=== PATIENT | female | born 1980 | race Caucasian/White ===

== ENCOUNTER 2018-07-27 13:46 | Emergency (ER) | payer MEDICAID, SELFPAY ==
[2018-07-27 13:47] VITALS: BP 126/85; PULSE 95; RESP 12; TEMP 36.6; O2SAT 100; BMI 26.0
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
[2018-07-27] MEDS: HYDROcodone Bitartrate/Apap 5/325 Tablet PO (14:09)
[2018-07-27] MEDS: Ibuprofen 600 MG Tablet PO (14:11)
--- NOTE | 2018-07-27 15:06 | ED.DEP ---
ED Disposition - Plan for ED Patient: Disposition: Home or Assisted Living Chief Complaint: Upper Extremity Injury Instructions: ED Fx Upper Ext Prescriptions: Hydrocodone/Acetaminophen [[place] 5-325 Tablet] 1 - 2 each PO 4X/DAY PRN PRN 5 Days #20 tablet PRN Reason: Pain Referrals: Alok Tillman DO [STAFF PHYSICIAN] - 1 Week
--- NOTE | 2018-07-27 15:09 | DCINST.ED_ITS ---
ED Disposition - Plan for ED Patient: Disposition: Home or Assisted Living Chief Complaint: Upper Extremity Injury Instructions: ED Fx Upper Ext Prescriptions: Hydrocodone/Acetaminophen [[place] 5-325 Tablet] 1 - 2 each PO 4X/DAY PRN PRN 5 Days #20 tablet PRN Reason: Pain Referrals: Alok Tillman DO [STAFF PHYSICIAN] - 1 Week
[2018-07-27 15:18] VITALS: RESP 16
== END 2018-07-27 15:19 | disposition home or self-care (01) ==
PROVIDERS: Emergency Provider Emergency Medicine; Family Provider Internal Medicine; PCP Internal Medicine
DX: S52.224A Nondisplaced transverse fracture of shaft of right ulna, initial encounter for closed fracture (principal); W18.30XA Fall on same level, unspecified, initial encounter; Y93.9 Activity, unspecified; Y92.009 Unspecified place in unspecified non-institutional (private) residence as the place of occurrence of the external cause; Y99.9 Unspecified external cause status; K21.9 Gastro-esophageal reflux disease without esophagitis; F31.9 Bipolar disorder, unspecified; Z72.0 Tobacco use
CPT/HCPCS: 29125; 73090; 99283

== ENCOUNTER 2018-08-09 06:33 | Emergency (ER) | payer MEDICAID, SELFPAY ==
[2018-08-09 06:34] VITALS: BP 133/89; PULSE 92; RESP 18; TEMP 36.9; O2SAT 99; BMI 26.2
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
[2018-08-09] MEDS: HYDROcodone Bitartrate/Apap 5/325 Tablet PO (07:51)
== END 2018-08-09 08:02 | disposition home or self-care (01) ==
PROVIDERS: Emergency Provider Emergency Medicine; Family Provider Internal Medicine; PCP Internal Medicine
DX: S52.601G Unspecified fracture of lower end of right ulna, subsequent encounter for closed fracture with delayed healing (principal); W10.9XXD Fall (on) (from) unspecified stairs and steps, subsequent encounter; Y04.2XXD Assault by strike against or bumped into by another person, subsequent encounter; K21.9 Gastro-esophageal reflux disease without esophagitis; Z72.0 Tobacco use
CPT/HCPCS: 29125; 71111; 73090; 99283

== ENCOUNTER 2018-09-21 17:30 | Emergency (ER) | payer SELFPAY ==
[2018-09-21 17:31] VITALS: BP 141/94; PULSE 89; RESP 15; TEMP 36.7; O2SAT 96; BMI 26.7
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
== END 2018-09-21 18:23 | disposition home or self-care (01) ==
LOC: ED 18:21
PROVIDERS: Emergency Provider Emergency Medicine; Family Provider Internal Medicine; PCP Internal Medicine
DX: R07.81 Pleurodynia (principal); M79.631 Pain in right forearm; G89.29 Other chronic pain; R07.9 Chest pain, unspecified; Z72.0 Tobacco use; J34.89 Other specified disorders of nose and nasal sinuses
CPT/HCPCS: 99282

== ENCOUNTER 2019-01-19 22:59 | Observation (INO) | payer MEDICAID, SELFPAY ==
[2019-01-19 23:00] VITALS: BP 149/88; PULSE 86; RESP 16; TEMP 36.4; O2SAT 98; BMI 28.1
[2019-01-20 00:01] LABS: Absolute Lymphocyte Count 2.59 X10^3/ul (0.83-4.51); Absolute Neutrophil Count 5.8 X10^3/uL (2.0-7.7); Basophil# 0.02 X10^3/uL; Basophil% 0.2 % (0-1); Eosinophil# 0.27 X10^3/uL; Eosinophils% 2.9 % (0-5); Hematocrit 37.5 % (37-47); Hemoglobin 12.2 g/dl (12.0-15.0); Lymphocyte # 2.59 X10^3/ul (4.0); Lymphocyte % 27.5 % (19-41); Mean Corp Hgb Conc 32.5 g/gl (32-36); Mean Corpuscular Hgb 29.5 pg (27.0-32.0); Mean Corpuscular Volume 90.8 fL (81-99); Mean Platelet Vol. 10.3 fl (6.2-12.0); Monocyte# 0.76 X10^3/uL; Monocyte% 8.1 % (0-10); Neutrophil # 5.77 X10^3/uL (2.7-7.7); Neutrophil % 61.1 % (47-70); POSITIVE COUNT NO; POSITIVE DIFFERENTIAL NO; POSITIVE MORPHOLOGY NO; Platelet Count 281 K/mm3 (150-450); RBC Distribution Width CV 14.2 % (11.6-14.6); RBC Distribution Width SD 47.6 fl (35.1-43.9); Red Blood Count 4.13 M/mm3 (4.2-5.4); White Blood Count 9.4 K/mm3 (4.4-11.0)
[2019-01-20] MEDS: Ondansetron 4 MG/2 ML Vial IV ×2 (00:01→04:34)
[2019-01-20] MEDS: 0.9% Normal Saline 1,000 ML 1000 ML IV (00:01)
[2019-01-20] MEDS: Morphine 4 MG/ML Syringe IV ×2 (00:01→00:53)
[2019-01-20 00:07] LABS: Mucous, Urine 0 SEEN /hpf (<or=2+)
[2019-01-20 00:11] LABS: ALB/GLOB Ratio 1.1 RATIO (0.9-2.4); AST(SGOT) 19 U/L (15-37); Alanine Aminotransfer ALT/SGPT 31 U/L (13-56); Albumin, Serum 3.5 g/dL (3.2-5.0); Alkaline Phosphatase 56 U/L (45-117); Anion Gap 4 (5-15); BUN 13 mg/dL (7-18); BUN/Creat Ratio 18.9 RATIO (10-20); Calcium,Total 8.1 mg/dL (8.5-10.1); Chloride 105 mmol/L (98-107); Creatinine, Serum 0.69 mg/dL (0.55-1.02); EST Glomerular Filtration Rate 103 mL/min (>60); Est Glom Filt Rate - Afr Amer 124 mL/min (>60); Estimated Creatinine Clearance 109.61 ml/min; Globulin 3.3 g/dL (2.2-4.2); Glucose 102 mg/dL (74-106); Lipase 87 U/L (73-393); Potassium 3.7 mmol/L (3.5-5.1); Protein, Total 6.8 g/dL (6.4-8.2); Sodium Level 137 mmol/L (136-145)
[2019-01-20 00:12] LABS: Color, Urine Straw (Yellow); Glucose, Dipstick Normal (Normal); Ketone-Dipstick Negative (Negative); Leukocyte Esterase-Dipstick Negative /ul (Negative); Nitrite-Dipstick Negative (Negative); Occult Blood-Urine 10 /ul (Negative); Protein-Dipstick Negative (Negative); Specific Gravity, Urine 1.015 (1.002-1.030); Urine Bilirubin Dipstick Negative (Negative); Urine Clarity Clear (Clear); Urine Urobilinogen Normal (Normal)
[2019-01-20 00:14] LABS: Internal QC Validated? YES +Cl - CLEAR BKGD; Pregnancy, Urine Negative Negative
[2019-01-20 00:17] LABS: Bacteria RARE /hpf (None Seen); Red Blood Cells-Urine 0-5 SEEN /hpf (0-5); Squamous Epithelial Cells - UA 0-5 SEEN /hpf (5-10)
[2019-01-20 00:18] LABS: White Blood Cells 0-5 SEEN /hpf (0-5)
--- NOTE | 2019-01-20 00:42 | ED.VISSUMM ---
- ER Visit Summary Date of Service: 01/20/19 Chief Complaint: Abdominal pain History of Present Illness: The patient is a 38 F who presents with abdominal pain. This began earlier today about 8 or 9 hours before presentation. The pain is lower. It is right more so than left. She describes it as cramping in nature. She reports some mild associated nausea but no vomiting. No diarrhea. No urinary symptoms such as dysuria frequency urgency hematuria. Her last menstrual period was 2 weeks ago. She denies vaginal bleeding or vaginal discharge. She states her pain has progressively been worsening. It is similar to when she had diverticulitis previously. Physical Examination: Afebrile vitals normal Patient does appear uncomfortable Moist mucous membranes Heart regular rate and rhythm Lungs are clear Abdomen soft nondistended she does have diffuse nonfocal abdominal tenderness no guarding no rebound she does not have pain specific to McBurney's point negative Hair sign and Rovsing sign Test Results: CBC BMP hepatic function lipase urinalysis all unremarkable. negative. CT the abdomen and pelvis shows a small amount of free pelvic fluid and findings suggestive of left hydrosalpinx. Pelvic ultrasound shows findings in keeping with left hydrosalpinx mild free pelvic fluid. There are bilateral ovarian follicular cysts. There is bilateral ovarian blood flow. Emergency Department Course and Treatment: Given patient's lower abdominal pain with report of it being worse on the right I was initially concerned for possible appendicitis. Laboratory studies were obtained and a CT with oral and IV contrast was ordered. She was treated with IV fluids morphine and Zofran. She did continue to complain of pain and nausea. She was given additional morphine and IV Phenergan. CT showed findings as above. Pelvic ultrasound was ordered for further evaluation. Patient was given IV Toradol. Ultrasound returned notable for above findings with evidence of hydrosalpinx no ovarian torsion. Patient continues to complain of 7 out of 10 pain and was given IV Dilaudid. She has also very anxious on reevaluation and tearful. She states she used to take Xanax. She was given oral Xanax for anxiety. I spoke to Dr. Joshi, stonemason apprentice for Dr. Frank whom the patient has previously seen. I do not believe the patient can be discharged at this time given her intractable pain. She was admitted under ASSISTANT PROFESSOR OF ANTHROPOLOGY for further evaluation and management. Treatment Plan: [] Disposition: Admit Impression: Hydrosalpinx Intractable abdominal pain This note was generated with [employer] dictation software. It may contain incorrect words, spelling, and punctuation that were not noted in review of the chart prior to signing ED Disposition - Plan for ED Patient: Referrals: Priscilla Payne MD [Primary Care Provider] -
[2019-01-20] MEDS: proMETHazine 25 MG/ML Syringe 12.5 MG IV (00:53)
--- NOTE | 2019-01-20 03:52 | ED.RN ---
SEE DOWNTIME FORMS FOR TORADOL MEDICATION, RN NOTES AND LAST SET OF VITAL SIGNS.
--- NOTE | 2019-01-20 04:07 | US_ITS ---
HISTORY: LT HYDROSALPYNX, ABD PAIN TECHNIQUE: Transvaginal pelvic ultrasound was performed. COMPARISON: None FINDINGS: The uterus is anteverted and is normal in size measuring approximately 7.6 x 3.5 x 5.2 cm in longitudinal, AP, and transverse dimensions, respectively. The upper uterus shows 2 separate symmetrical endometrial horns which appears more in keeping with a septate uterus than bicornuate uterus. The endometrium is uniform and measures 8 mm in diameter which is normal. No endometrial fluid collections. The ovaries are identified and appear normal in size with the right measuring approximately 3.8 x 3.4 x 2.4 cm and left measuring 3.5 x 2.2 x 1.7 cm both ovaries show multiple follicular cysts. Bilateral ovarian blood flow. The left adnexal region shows a hypoechoic tubular structure without vascular flow in keeping with hydrosalpinx. Small free fluid within the posterior cul-de-sac. US/Transvaginal Non- IMPRESSION: 1. Ultrasound findings in keeping with left hydrosalpinx. Small free pelvic fluid. 2. Normal uterine size with developmental septate features. 3. Bilateral ovarian follicular cysts at 0501 Reported and signed by: Stef Zhang MD Electronically Signed: Stef Zhang, at 5:00 EDT Tel , Service support ,
[2019-01-20 04:35] VITALS: BP 129/90; PULSE 89; RESP 20; O2SAT 100
[2019-01-20] MEDS: HYDROmorphone 1 MG/ML Syringe IV (05:18)
[2019-01-20 05:27] VITALS: BP 129/88; PULSE 90; RESP 18; TEMP 36.6; O2SAT 100
[2019-01-20] MEDS: ALPRAZolam 0.5 MG Tablet PO (05:32)
--- NOTE | 2019-01-20 05:35 | ED.RN ---
pt returned from us and put street clothes back on. pt refuses to get back into gown. Notified pt she would need to get into gown on floor. PT still anxious and agitated in bed. Removed bag full of linens that pt was trying to take home.
[2019-01-20 06:04] VITALS: BMI 28.3
[2019-01-20 06:09] VITALS: BMI 28.4
--- NOTE | 2019-01-20 06:21 | NURSING ---
pt arrived to floor pacing all over room, yelling about her iv, that she itches difficult to redirect for admit questions. emotional support provided with little effect. pt threatening to leave. charger operator aware
[2019-01-20 06:24] VITALS: BP 127/91; PULSE 111; RESP 18; TEMP 36.6; O2SAT 95
--- NOTE | 2019-01-20 07:15 | HP.PCM_ITS ---
- Problem List (1) Pelvic pain Status: Acute History and Physical Date of Admission: 01/20/19 HPI: Patient presented to the ED overnight with pelvic pain. The ED physician felt that the patient required admission due to her pain. Once patient was up to floor, RN reports patient was walking around the halls agitated and pulling at her hair. She was requesting to leave AMA and the AMA paperwork was ready. The patient is very difficult to get a history from. She is continuously moving around the bed and pulling at her hair. She is agitated and irritable. She talks over me and states can you just let me talk when trying to ask her questions to obtain a history. When asked a question, she will avoid the question and continue to state she is frustrated because she wants to eat, etc. She says the pain started yesterday and it is across her entire pelvis. She describes it as cramping and bloated. Denies constipation and says her last BM was 2 days ago. Denies vaginal bleeding, vaginal discharge, urinary symptoms, fevers, chills. Currently having nausea and vomiting that she says started after the Dilaudid she was given. She declines an antiemetic and states she needs to eat. She says she is sexually active with 1 male partner. Denies exposure to STI but states she lives in [place] so could have an STI. Per chart review, patient last saw out office in 2015. She has a h/o chronic pelvic pain. She was receiving Ultram for this pain at times from another provider. There are multiple telephone notes in the chart with the patient requesting pain medication. There is some concern for drug seeking and drug use. The patient adamantly denies alcohol or drug use. She says she has used cocaine in the past but has not used in many years. [facility]. PMH: Unable to obtain from patient. Per chart review: chronic pelvic pain, dysmenorrhea, anxiety, trichomonas, bipolar 2 disorder Meds: Pt states she is not taking medication PSH: Unable to obtain from patient. Per chart review: tonsillectomy, tendon repair of left arm, D&C, laser surgery of face, excision of bartholin gland cyst, right breast biopsy Family Hx: Unable to obtain from patient. Per chart review: ovarian ca in [facility], breast and lung cancer in mother, ovarian cancer in sister, HTN and diabetes in father SocHx: She denies drug or alcohol use currently but admits to cocaine use in the past OBHx: G0 GynHx: Currently sexually active with 1 male partner. H/o menorrhagia and pelvic pain that was being managed in the office 3 years ago. Pt reports h/o chlamydia and trich AF, VSS Gen: Agitated, irritated, uncooperative, pulling at hair Head: Atraumatic Chest: No increased resp effort Abd: Soft, nontender, nondistended, no rebounding, no gaurding, no rigidity LE: No edema Neuro: Grossly intact A/P: 38 y/o w/ h/o chronic pelvic pain admitted with pelvic pain - CT shows a 2cm hydrosalpinx. Unlikely to be the cause of her pain. She is in no pain and has a benign abdomen. H/o chlamydia and trich. No surgical intervention required at this time - CT also shows constipation. She describes her pain as crampy and bloating, and the constipation is likely the cause. Discussed hydration, increasing fiber, colace BID and miralax - Pelvic US w/ hydrosalpinx and otherwise no acute findings - WBC and Hgb nml - There is some concern for drug use and drug seeking behavior given the above. Will run an OARRS report - Dispo: D/c home with follow up in the office. She is declining Zofran for nausea and Benadryl for pruritis, and just wants to eat and leave
--- NOTE | 2019-01-20 07:43 | DCINST_ITS ---
- Discharge Diagnoses Current Active Problems: Current Active and Chronic Problems Pelvic pain (Acute) You will use the following diet at home:: No restrictions Your food should be the consistency of: Regular Discharge Activity: Return to Normal Activity May resume sexual activity in: No Restrictions Weight Bearing Status: Full weight bearing Lifting Restrictions: None Call your doctor if you observe: Fever of 101 or Higher, Inability to have a bowel movement, Uncontrolled pain Additional Instructions: Work on staying hydrated and increasing fiber in your diet. Take Colace 100mg twice daily and Miralax once daily to help with constipation Allergies/Adverse Reactions: Allergies naproxen Adverse Reaction (Verified 01/19/19 23:02) Nausea Medications to take at Discharge NK 01/19/19 Primary Care Physician: Priscilla Payne MD [Primary Care Provider] - Test Results: Test results from this visit will be discussed in further detail at your follow- up appointment, if applicable. Please Follow Up With: Malaika Joshi DO
[2019-01-20] MEDS: DiphenhydrAMINE 25 MG Capsule PO (07:50)
[2019-01-20 07:52] VITALS: BP 117/87; PULSE 79; RESP 16; TEMP 36.6; O2SAT 100
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
--- NOTE | 2019-01-20 23:28 | CT_ITS ---
HISTORY: LOW ABDOMEN PAINHX:DIVERTICULITIS,GERD,KIDNEY STONES TECHNIQUE: Helically acquired images were obtained of the abdomen and pelvis following IV contrast. A radiation dose optimization technique was used for this scan. IV Contrast dosage and agent: 100 cc Isovue 370 contrast Oral contrast: Yes COMPARISON: 08/11/2013 FINDINGS: Lower thorax: Clear. No pleural effusion. Normal liver, spleen, pancreas, gallbladder, and biliary system. Both kidneys are normal in position. Bilateral renal excretion of contrast without evidence of hydronephrosis or suspicious renal lesion. Bilateral renal parapelvic cysts, larger on the right. 2 mm calyceal stone at the upper pole of the left kidney. No hydroureter. Adrenal glands are not enlarged. Normal abdominal aorta and IVC. No retroperitoneal lymph enlargement. GI tract: Constipation with large fecal residue within the right and transverse colon and moderate fecal residue within the left colon. The rectosigmoid colon shows no significant distention. No pericecal inflammatory changes. Pelvis: The uterus is anteverted and is normal in size. Small fluid within the posterior cul-de-sac. The left adnexal region shows a tubular shaped fluid filled structure measuring 2 cm in diameter and this appears separate from the small bowel, suspicious for left hydrosalpinx. Bones: No acute osseous abnormality. CT/Abdomen/Pelvis WITH Contrast IMPRESSION: 1. Constipation pattern. No diverticulitis seen. 2. Small free pelvic fluid and left hydrosalpinx suggested. Consider further correlation with pelvic ultrasound. 3. Left renal tiny nonobstructing stone. Individualized dose optimization techniques were used for this CT. at 0213 Reported and signed by: Stef Zhang MD Electronically Signed: Stef Zhang, at 2:12 EDT Tel , Service support ,
== END 2019-01-20 09:00 | disposition home or self-care (01) ==
LOC: ED 01-20 00:08 → MS3 01-20 05:50
PROVIDERS: Admitting Provider Obstetrics & Gynecology; Emergency Provider Emergency Medicine; Family Provider Internal Medicine; PCP Internal Medicine; Referring Provider Obstetrics & Gynecology; Visit Provider Obstetrics & Gynecology
DX: G89.29 Other chronic pain (principal); R10.2 Pelvic and perineal pain; K59.00 Constipation, unspecified; N70.11 Chronic salpingitis; R11.2 Nausea with vomiting, unspecified
CPT/HCPCS: 74177; 76830; 80053; 81001; 81025; 83690; 85025; 93976; 96361; 96374; 96375; 96376; 99284; J7030; Q9967; A4216; J2405

== ENCOUNTER 2020-06-21 06:10 | Emergency (ER) | payer MEDICAID, SELFPAY ==
[2020-06-21 06:11] VITALS: BP 109/97; PULSE 98; RESP 16; TEMP 35.8; O2SAT 95; BMI 35.8
--- NOTE | 2020-06-21 06:13 | RAD_ITS ---
HISTORY: no recent injuryc/o pain and swelling to rt wirstprev. fx 2 yrs ago, patient states she fell in Nov and tried to catch herself ADDITIONAL HISTORY: None provided. EXAMINATION/TECHNIQUE: XR Wrist Min 3 Views Right Number of images including paperwork: 3 COMPARISON: None FINDINGS: BONES: No acute fracture. Posttraumatic deformity of the mid to distal ulna. JOINTS: No subluxation. Moderate radial carpal joint space narrowing. SOFT TISSUES: No distinct foreign body. RAD/Wrist min 3 Views IMPRESSION: No acute osseous abnormality. at 0637 Reported and signed by: Jenise Lamar MD Electronically Signed: Jenise Lamar MD at 6:37 EDT Tel , Service support ,
--- NOTE | 2020-06-21 07:50 | ED.VIS.GEN ---
History of Present Illness Chief Complaint: Upper Extremity Injury Informant: Patient Narrative: Presents with right wrist pain that is chronic. She stated she has had pain for greater than 6 months. She fell in November and has been having some chronic pain since. Has had negative x-rays in January. Comes in for further evaluation. Current severity is mild - Past Medical History (1) Pelvic pain Status: Acute (2) Ureterolithiasis Status: Acute Past Medical History - Allergies and Home Meds Allergies/Adverse Reactions: Allergies naproxen Adverse Reaction (Verified 06/21/20 06:14) Nausea Primary Care Physician: Priscilla Payne MD [Primary Care Provider] - Prior records reviewed: Yes Past Medical History: - - Reviewed Surgical History: - - Reviewed Smoking Status: Current every day smoker Alcohol: None Drugs: None Review of Systems General: Denies: Chills, Fever, Sweats Eyes: Denies: Visual changes - bilaterally, Diplopia ENT: Denies: Rhinorrhea, Sore throat Cardiovascular: Denies: Chest pain, Palpitations Respiratory: Denies: Dyspnea, Cough, Dyspnea on exertion Gastrointestinal: Denies: Abdominal pain, Nausea, Vomiting, Diarrhea, Melena, Hematochezia Genitourinary: Denies: Dysuria, Hematuria, Frequency Musculoskeletal: Reports: Extremity Pain. Denies: Back pain Skin: Denies: Rash, Wounds Neurological: Denies: Headache, Weakness, Numbness Physical Exam Vital Signs/Narrative: Vital Signs Temp Pulse Resp BP Pulse Ox 06/21/20 06:11 96.4 F L 98 16 109/97 H 95 General: Well nourished, Well developed, No Acute Distress Head: Normocephalic, Atraumatic Eyes: Perrl, EOMI ENT: Moist mucous membranes, No rhinorrhea Neck: Supple, Nontender Cardiovascular: Regular rate, Regular rhythm, No murmurs Respiratory: No distress, CTA bilaterally, Chest nontender Abdomen: Soft, Nontender, Nondistended, Normal bowel sounds Back: Nontender, Normal Inspection Extremities: No edema, Tenderness - Numbness over the diffuse wrist without swelling or deformity Skin: Normal color, No rash Neurological: Alert, Oriented x3, Cranial nerves II-XII grossly intact, Normal Strength, Normal Sensation Psychological: Normal affect, Normal Mood Diagnostic/Tx/Re-eval - Medical Decision Making X-ray is negative. Patient given a wrist splint and Toradol. We will follow-up with Ortho ED Disposition - Plan for ED Patient: Disposition: Home or Assisted Living Diagnosis: Right wrist pain Instructions: ED Sprain Wrist Referrals: Dontae Arizmendi MD [STAFF PHYSICIAN] -
[2020-06-21] MEDS: Ketorolac 15 MG/ML Vial IV (08:07)
== END 2020-06-21 08:11 | disposition home or self-care (01) ==
PROVIDERS: Emergency Provider Emergency Medicine; PCP Internal Medicine
DX: M25.531 Pain in right wrist (principal); G89.29 Other chronic pain; F17.200 Nicotine dependence, unspecified, uncomplicated; Z88.6 Allergy status to analgesic agent; Z87.442 Personal history of urinary calculi
CPT/HCPCS: 73110; 99283

== ENCOUNTER 2020-07-19 19:10 | Emergency (ER) | payer MEDICAID, SELFPAY ==
[2020-07-19 19:11] VITALS: BP 117/77; PULSE 92; RESP 20; TEMP 36.2; O2SAT 100; BMI 34.8
--- NOTE | 2020-07-19 20:44 | RAD_ITS ---
STUDY: X-RAY - RIGHT HAND REASON FOR EXAM: Female, 40 years old. RIGHT HAND PAIN, NUMBNESS AND TINGLING, RESULTING FROM PREVIOUS INJURY. TECHNIQUE: 3 view(s) of the hand. COMPARISON: Prior right wrist radiographs of 05/21/2020, right forearm radiographs of 08/19/2018 FINDINGS: Mild degenerative arthrosis of the radiocarpal joint. Normal distal radioulnar joint. Deformity of the lunate with loss of volume and irregularity or fragmentation of the radial side surface. Normal carpal articulations Normal carpometacarpal articulation of the thumb. Normal second through fifth carpometacarpal joints. Normal metacarpi. Normal metacarpophalangeal joint of the thumb. Normal interphalangeal joint of the thumb. Normal proximal and distal phalanges of the thumb. Normal metacarpophalangeal joints of the second through fifth fingers. Normal proximal and distal interphalangeal joints of the second through fifth fingers. Normal phalanges of the second through fifth fingers. The soft tissue structures are unremarkable. RAD/Hand Min 3 Views IMPRESSION: Partial collapse and fragmentation of the lunate, Kienbocks disease/avascular necrosis. This was not apparent on prior forearm radiographs of 08/09/2018 at the time of the acute diaphyseal fracture of the ulna. The finding is noticeable on the right wrist radiograph of 06/21/2020 in retrospect. Mild degenerative arthrosis of the radiocarpal joint. No other acute bone or joint findings. Electronically Signed: Tereza Fan MD at 21:45 EDT , Service support ,
--- NOTE | 2020-07-19 20:46 | ED.DCSUM_ITS ---
History of Present Illness Chief Complaint: Upper Extremity Injury Informant: Patient Onset: Month(s) Context: Gradual Onset Timing: Waxes and wanes Current Severity: Moderate Maximum Severity: Moderate Narrative: Patient present secondary to continued right arm pain. She states that she broke her right forearm a couple years ago and never completely healed right. She did fall again in November and states since that time she has had increased pain to her arm. She reported to Dr. Lott at the [facility]. She states that she was diagnosed with osteo-something and told that there was not good blood flow to some of the bones in her wrist. She is an appointment next Friday. She states that she was told to come to the emergency room to get pain medication. Patient does admit to falling again a couple hours ago and increased pain to the arm has been noted. Past Medical History - Allergies and Home Meds Allergies/Adverse Reactions: Allergies naproxen Adverse Reaction (Verified 06/21/20 06:14) Nausea Primary Care Physician: Charles Lott MD [STAFF PHYSICIAN] - Keep Lavinia appointment Past Medical History: None Surgical History: - - Reviewed Smoking Status: Current every day smoker Review of Systems General: Denies: Chills, Fever Eyes: Denies: Visual changes - bilaterally ENT: Denies: Bilateral ear pain Cardiovascular: Denies: Chest pain Respiratory: Denies: Dyspnea, Cough Gastrointestinal: Denies: Abdominal pain, Nausea, Vomiting Musculoskeletal: Reports: Extremity Pain Skin: Denies: Rash Hematologic: Denies: Easy bruising, Easy bleeding Allergy: Denies: Uticaria Physical Exam Vital Signs/Narrative: Vital Signs Temp Pulse Resp BP Pulse Ox 07/19/20 19:11 97.2 F L 92 20 H 117/77 100 Inital Vital Signs reviewed: Yes General: Well nourished, Well developed Head: Normocephalic ENT: Moist mucous membranes Neck: Supple Cardiovascular: Regular rate, Regular rhythm Respiratory: No distress, CTA bilaterally Abdomen: Soft, Nontender Extremities: - - Mild diffuse tenderness throughout the forearm and hand on the right. No focal areas of tenderness, erythema, or swelling are noted. No deformity noted. Good cap refill is noted in all digits. Neurological: Alert, Oriented x3 Psychological: - - Anxious Diagnostic/Tx/Re-eval Impressions Hand X-Ray 07/19/20 20:44 IMPRESSION: Partial collapse and fragmentation of the lunate, Kienbocks disease/avascular necrosis. This was not apparent on prior forearm radiographs of 08/09/2018 at the time of the acute diaphyseal fracture of the ulna. The finding is noticeable on the right wrist radiograph of 06/21/2020 in retrospect. Mild degenerative arthrosis of the radiocarpal joint. No other acute bone or joint findings. Electronically Signed: Tereza Fan MD at 21:45 EDT , Service support , Forearm X-Ray 07/19/20 21:10 IMPRESSION: Healed diaphyseal fracture of the ulna in good alignment. Abnormality of the lunate carpal as discussed under right wrist radiographs of the same day. Electronically Signed: Tereza Fan MD at 21:48 EDT , Service support , 07/19/20 20:44 Hand Min 3 Views [RAD] Stat 07/19/20 21:10 Xray Forearm [Forearm 2 Views] [RAD] Stat - Medical Decision Making Patient was given a dose of prednisone and 1 tab of [place] here. I was able to review notes from [facility]. Patient did have evidence of osteonecrosis on x-ray and is referred to orthopedics to be seen on Friday. Oars report shows no narcotics since 2017. Should be given a prescription for 10 tabs of [place]. Velcro wrist splint is applied. 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 Please wear the velcro wrist splint until seen by orthopedics on Friday.
[2020-07-19] MEDS: HYDROcodone Bitartrate/Apap 5/325 Tablet PO (20:56)
[2020-07-19] MEDS: predniSONE 20 MG Tablet 60 MG PO (20:56)
--- NOTE | 2020-07-19 21:10 | RAD_ITS ---
STUDY: X-RAY - RIGHT RADIUS AND ULNA REASON FOR EXAM: Female, 40 years old. PAIN IN RIGHT FOREARM FROM PREVIOUS INJURY. TECHNIQUE: 2 view(s) of the forearm. COMPARISON: Prior forearm radiographs of 08/09/2018 FINDINGS: There is no demonstrated soft tissue swelling. Normal visualized radius. The diaphyseal fracture of the ulna that occurred 8 cm proximal to the radial carpal joint has healed in good alignment with a thick callus collar. The wrist is included in the [id number]. Abnormality of the lunate. RAD/Forearm 2 Views IMPRESSION: Healed diaphyseal fracture of the ulna in good alignment. Abnormality of the lunate carpal as discussed under right wrist radiographs of the same day. Electronically Signed: Tereza Fan MD at 21:48 EDT , Service support ,
== END 2020-07-19 22:51 | disposition home or self-care (01) ==
PROVIDERS: Emergency Provider Emergency Medicine; PCP Internal Medicine
DX: M87.237 Osteonecrosis due to previous trauma of right carpus (principal); F17.200 Nicotine dependence, unspecified, uncomplicated; Z88.6 Allergy status to analgesic agent
CPT/HCPCS: 73090; 73130; 99283

== ENCOUNTER 2020-08-06 11:15 | Emergency (ER) | payer MEDICAID, SELFPAY ==
[2020-08-06 11:16] VITALS: BP 118/103; PULSE 93; RESP 16; TEMP 36.3; O2SAT 98; BMI 33.4
--- NOTE | 2020-08-06 11:26 | RAD_ITS ---
STUDY: X-RAY - LEFT TIBIA AND FIBULA REASON FOR EXAM: Female, 40 years old. left mid to distal tib/fib pain, remembers she recently fell TECHNIQUE: 2 view(s) of the tibia and fibula were obtained. COMPARISON: None. FINDINGS: Normal visualized tibia. Normal visualized fibula. The soft tissue structures are unremarkable. RAD/Tibia & Fibula 2 Views IMPRESSION: Normal x-ray examination of the tibia and fibula. Electronically Signed: Demetri Pollard MD at 12:00 EDT Tel , Service support ,
[2020-08-06] MEDS: Ibuprofen 400 MG Tablet 800 MG PO (11:32)
--- NOTE | 2020-08-06 11:49 | ED.DCSUM_ITS ---
- ER Visit Summary Date of Service: 08/06/20 Chief Complaint: Left leg pain History of Present Illness: The patient is a [address] Vargas. She reports that yesterday she tripped when stepping up onto a curb. She reports that she did not think that she injured her left leg. However, later in the [place] her leg began to hurt. Says sharp pain is 10 of 10 at worst and 7 out of 10 currently. Is worsened by walking movement. Is relieved by rest. She is not taken anything for pain. Denies any numbness or weakness. Patient denies any blow to the head or loss of consciousness. She not on anticoagulants. She denies neck, back, or other extremity injuries. Physical Examination: Vitals: Stable. Afebrile. Neck: No vertebral tenderness. Full ROM without difficulty. Cleared by NEXUS criteria. Back: No vertebral tenderness. General: A&O x 3. NAD. Cardiovascular exam: Regular rate and rhythm, no murmur, rub or gallop. Respiratory exam: Chest nontender. No crepitus. Clear to auscultation bilaterally. No wheezes or stridor. Abdominal exam: Soft, nontender, nondistended, normal bowel sounds. No pain in RUQ or LUQ specifically. No peritoneal signs. Extremity: Moderate tenderness palpation to the anterior tibia/fibula on the left. She is neuro vas intact distal sensation light touch less than 2-second cap refill. She has 2+ dorsalis pedis pulse. Test Results: Clinical Impression(s) from Imaging Studies Tibia/Fibula X-Ray 08/06/20 11:26 IMPRESSION: Normal x-ray examination of the tibia and fibula. Electronically Signed: Demetri Pollard MD at 12:00 EDT Tel , Service support , Emergency Department Course and Treatment: Patient was given ibuprofen. She is resting comfortably. Treatment Plan: Patient will be discharged with symptomatic care. Use Tylenol and/or ibuprofen as needed for pain. Follow-up with her primary care physician 1 week if not improving. Return to the emergency department for any worsening symptoms. Disposition: To home in improved and stable condition. Impression: 1. Left leg pain, acute. This note was generated with PerSay dictation software. It may contain incorrect words, spelling, and punctuation that were not noted in review of the chart prior to signing ED Disposition - Plan for ED Patient: Instructions: ED Strain Muscle Ext Referrals: Priscilla Payne MD [Primary Care Provider] - 1 Week if not improving
== END 2020-08-06 12:15 | disposition home or self-care (01) ==
PROVIDERS: Emergency Provider Emergency Medicine; PCP Internal Medicine
DX: M79.605 Pain in left leg (principal); F17.200 Nicotine dependence, unspecified, uncomplicated
CPT/HCPCS: 73590; 99283

== ENCOUNTER 2021-07-08 00:35 | Emergency (ER) | payer MEDICAID, SELFPAY ==
[2021-07-08 00:36] VITALS: BP 139/106; PULSE 86; RESP 18; TEMP 36.3; O2SAT 99; BMI 34.3
[2021-07-08] MEDS: HYDROcodone Bitartrate/Apap 5/325 Tablet PO (01:02)
[2021-07-08] MEDS: Ibuprofen 600 MG Tablet PO (01:02)
[2021-07-08] MEDS: Diphth,Pertuss(Acell),Tet Vac 0.5 ML Vial IM (01:03)
--- NOTE | 2021-07-08 01:10 | RAD_ITS ---
STUDY: X-RAY - RIGHT ELBOW REASON FOR EXAM: Female, 41 years old. Pain after trauma TECHNIQUE: 3 view(s) of the elbow. COMPARISON: None. FINDINGS: Please see the impression. RAD/Elbow min 3 Views IMPRESSION: No acute fracture or dislocation in the right elbow. Mild degenerative changes of the trochlear-olecranon joint. No radiographic evidence of elbow joint effusion. Electronically Signed: Noah Stevenson MD at 2:01 EDT Tel , Service support ,
--- NOTE | 2021-07-08 01:29 | EX.ED.UPPERE ---
HPI History of Present Illness Chief Complaint: Upper Extremity Injury Informant: patient Narrative Narrative: [id number]-rzai-[id number] female presents mechanical fall outside onto rocks half hour prior to arrival. Denies head injuries. Reports history of forearm fracture in 2019 no surgical repair. States followed up with [facility]. Allergy to naproxen however as tolerated ibuprofen. Denies alcohol today however did admit to smoking more marijuana than usual. Pain to elbow worse with movement. Tetanus unknown. No anticoagulation medications. Tetanus Immunization: Unknown Prior similar symptoms: Yes PFSH PFS Medical History Arm fracture Home Medications ibuprofen 600 mg PO Q6H PRN PRN #20 tab 07/08/21 [Rx Last Taken Unknown] Allergy/AdvReac Type Severity Reaction Status Date / Time naproxen AdvReac Nausea Verified 07/08/21 00:38 Social History Smoking Status: Current every day smoker tobacco type: cigarettes ROS ROS ED Constitutional Constitutional ED: Denies chills, fever(s) or sweats Eyes Eyes: Denies change in vision ENT ENT ED: Denies dysphagia or sore throat Cardiovascular Cardiovascular: Denies chest pain, leg edema, palpitations or racing heartbeat Respiratory/Chest Respiratory/Chest: Denies cough, dyspnea or dyspnea on exertion Gastrointestinal Gastrointestinal: Denies abdominal pain, diarrhea, nausea or vomiting Genitourinary Genitourinary ED: Denies dysuria, hematuria or urinary frequency Musculoskeletal Musculoskeletal: Reports other Details: Right elbow pain ; Denies back pain, extremity pain or neck pain Integumentary Reports other Details: Wound right elbow ; Denies rash or wounds Neurologic Neurologic: Denies headache(s), paresthesias or weakness EXAM Physical Exam Const Vital Signs: 07/08/21 00:36 Temperature 97.4 F L Temperature Source Temporal Pulse Rate 86 Respiratory Rate 18 Blood Pressure 139/106 H Blood Pressure Mean 117 Pulse Ox 99 Positive well nourished and well developed Constitutional Narrative: Strong marijuana odor General Appearance ED: well developed and NAD HEENT Reports moist mucous membranes normocephalic and atraumatic Eyes PERRL, EOMs intact bilaterally and conjunctivae normal General Eye ED: Yes normal appearance of both eyes Neck no lymphadenopathy and supple General: Negative for tenderness Chest Wall Chest: Negative for tenderness Resp normal respiratory effort and normal air movement Effort and Inspection: symmetric chest movement; Negative for respiratory distress Cardio regular rate, regular rhythm and no murmurs Peripheral Pulses: pulses 2+ throughout GI normal to inspection, nondistended, normoactive bowel sounds and non-tender Palpation: Negative for guarding or rebound tenderness present Back/Spine no CVA tenderness and no thoracic nor lumbar tenderness Extremity Extremity Narrative: Right upper extremity: No shoulder tenderness or deformities. Elbow examination there is contusion noted proximal dorsal forearm 1 cm laceration minimal bleeding. No deformities of the elbow. Pain with straightening. No pain with pronation or supination. No wrist tenderness. Neuro vas intact distally. General Extremety ED: Negative for edema or tenderness General Extremity: Negative for edema Neuro oriented x3 and no sensory deficits noted Sensorium / Orientation: awake and alert Skin no rashes or lesions noted and no wounds Skin Narrative: See above MDM MDM MDM Narrative Medical decision making narrative: Patient's tetanus updated. X-ray shows no fracture or dislocation. No radiopaque foreign bodies. Mild bleeding to the 1 cm laceration. This was repaired with 1 suture. Bleeding controlled. Patient was given a dose of Motrin and [place] in the ED prior to x-ray results. She will continue NSAIDs follow-up with her PCP in 1 week for suture removal. All questions were answered. Procedure note: Verbal consent. Normal sterile fashions. 1 cc 1% lidocaine used for local analgesia. Wound was copiously flushed with normal saline. 1, 4-0 nylon simple interrupted suture was placed with good approximation. Patient tolerated procedure well. Dressing placed by myself. Yaw wrap for the hematoma. Radiography Diagnostic Testing: Three-view x-ray right elbow: No fracture or dislocation. No radiopaque foreign bodies. Discharge Plan Triage Chief Complaint: Upper Extremity Injury ED Provider: Son Faulkner Dx/Rx/DC Orders Clinical Impression: Contusion of elbow, left, Laceration of left elbow, Dlgddwkgrr-[id number] (DTP) vaccination, Marijuana use Instructions: ED Contusion, Elbow, ED Laceration: All Closures Prescriptions: New ibuprofen 600 mg tablet 600 mg PO Q6H PRN PRN (Reason: pain) Qty: 20 RF: 0 Primary Care Provider: Priscilla Payne Referrals: Priscilla Payne MD [Primary Care Provider] - 7 Days for suture removal
--- NOTE | 2021-07-08 02:41 | ED.RN ---
PT PROVIDED A PHONE NUMBER FOR [facility] FOR A RIDE HOME SHE IS VERY SLEEPY. ATTEMPTED TO CALL HIM 3 TIMES WITHOUT SUCCESS.
[2021-07-08] MEDS: Lidocaine 1% (20 ml mdv) 20 ML Vial INFILT (02:42)
== END 2021-07-08 02:41 | disposition home or self-care (01) ==
PROVIDERS: Emergency Provider Emergency Medicine; PCP Internal Medicine
DX: S50.02XA Contusion of left elbow, initial encounter (principal); S51.012A Laceration without foreign body of left elbow, initial encounter; W20.8XXA Other cause of strike by thrown, projected or falling object, initial encounter; Y93.9 Activity, unspecified; Y92.89 Other specified places as the place of occurrence of the external cause; Y99.8 Other external cause status; F12.90 Cannabis use, unspecified, uncomplicated; Z23 Encounter for immunization; F17.210 Nicotine dependence, cigarettes, uncomplicated; Z79.1 Long term (current) use of non-steroidal anti-inflammatories (NSAID)
CPT/HCPCS: 12001; 73080; 90715; 99284

== ENCOUNTER 2022-01-14 00:22 | Emergency (ER) | payer MEDICAID, SELFPAY ==
[2022-01-14 00:23] VITALS: BP 126/84; PULSE 70; RESP 15; TEMP 36.7; O2SAT 100; BMI 30.3
--- NOTE | 2022-01-14 01:08 | CT_ITS ---
STUDY: CT LUMBAR SPINE WITHOUT CONTRAST REASON FOR EXAM: Female, 41 years old. Lumbar radiculopathy RADIATION DOSAGE (If Supplied By Facility): CTDIvol = ( 17.13 ) mGy, DLP = ( 652.00 ) mGycm TECHNIQUE: The patient was scanned in a multi detector CT scanner. High resolution transaxial imaging was performed. Images were obtained from to . Sagittal and coronal images were reconstructed. Individualized dose optimization techniques were used for this CT. COMPARISON: None FINDINGS: Normal lumbar lordosis. There is no substantial scoliosis. Normal vertebrae of the lumbar spine. L1-2: Normal endplates. Normal disc height and morphology. Normal bilateral facet joints. Normal central canal and bilateral lateral recesses. Normal bilateral intervertebral neural foramina. L2-3: Normal endplates. Normal disc height and morphology. Normal bilateral facet joints. Normal central canal and bilateral lateral recesses. Normal bilateral intervertebral neural foramina. L3-4: Normal endplates. Normal disc height and morphology. Normal bilateral facet joints. Normal central canal and bilateral lateral recesses. Normal bilateral intervertebral neural foramina. L4-5: Normal endplates. Normal disc height and morphology. Normal bilateral facet joints. Normal central canal and bilateral lateral recesses. Normal bilateral intervertebral neural foramina. L5-S1: Normal endplates. Normal disc height and morphology. Normal bilateral facet joints. Normal central canal and bilateral lateral recesses. Normal bilateral intervertebral neural foramina. Normal visualized paraspinous soft tissue structures. CT/Spine Lumbar without Contrast IMPRESSION: Normal unenhanced CT examination of the lumbar spine. Electronically Signed: Maninder Oliveira MD at 2:14 EDT ,
[2022-01-14] MEDS: dexAMETHasone 10 MG/ML Vial IM (01:14)
[2022-01-14] MEDS: morphine 10 MG/ML Syringe IM (01:14)
[2022-01-14] MEDS: Ondansetron ODT 4 MG Tablet PO (01:15)
--- NOTE | 2022-01-14 02:51 | EDS_ITS ---
HPI History of Present Illness Chief Complaint: Other, Pain/Inj Narrative Narrative: Patient is a 41-year-old female who states that over the past few months she has had bilateral low back/hip pain. She denies any trauma prior to the pain beginning. She states the pain seems like it can radiate down her legs towards the knee and does seem to be worse with any type of bending or walking motion. She denies any loss of bowel or bladder control or IV drug use. She states that she has not seen anyone for this because has been variable over the last few months. However in the last 3 to 5 days she reports symptoms have worsened to the point where it is difficult to walk and therefore comes in for evaluation. [facility] Medical History Arm fracture Home Medications hydrocodone-acetaminophen 1 tab PO Q6H PRN 3 Days #12 tab 01/14/22 [Rx Last Taken Unknown] methocarbamol 1,000 mg PO 4X/DAY PRN PRN 7 Days #56 tab 01/14/22 [Rx Last Taken Unknown] Allergy/AdvReac Type Severity Reaction Status Date / Time naproxen AdvReac Nausea Verified 01/14/22 00:29 Social History Smoking Status: Current every day smoker tobacco type: cigarettes ROS ROS ED Constitutional Constitutional ED: Denies chills or fever(s) ENT ENT ED: Denies sore throat Cardiovascular Cardiovascular: Denies chest pain Respiratory/Chest Respiratory/Chest: Denies cough or dyspnea Gastrointestinal Gastrointestinal: Denies abdominal pain, diarrhea, nausea or vomiting Genitourinary Genitourinary ED: Denies dysuria Musculoskeletal Musculoskeletal: Reports back pain; Denies myalgias Integumentary Denies rash Neurologic Neurologic: Denies headache(s) Hematologic/Lymphatic Hematologic/Lymphatic: Denies easy bleeding or easy bruising EXAM Physical Exam Const Vital Signs: 01/14/22 00:23 01/14/22 00:32 01/14/22 02:58 Temperature 98.0 F Temperature Source Oral Pulse Rate 70 Respiratory Rate 15 20 H Respiratory Effort Normal Non-Labored Blood Pressure 126/84 H Blood Pressure Mean 98 Pulse Ox 100 Oxygen Delivery Method Room Air Positive well nourished and well developed General Appearance ED: well developed Eyes PERRL and EOMs intact bilaterally Neck supple Resp normal respiratory effort and clear to auscultation bilaterally Cardio regular rate and regular rhythm Rate: other Other Details: Radial pulses are +2-4 bilaterally are equal and symmetric GI normal to inspection, nondistended, normoactive bowel sounds, non-tender, non- distended and no masses GI Narrative: No voluntary guarding or rigidity no pulsatile mass Auscultation: normoactive bowel sounds Palpation: soft Back/Spine Back/Spine Narrative: No bony deformity or step-off of the thoracic or lumbar spine. There is pain with palpation of the lower midline lumbar region. There is also pain with palpation of The bilateral sacroiliac joints and over top the right piriformis muscle belly. No saddle anesthesia is noted. Negative straight leg raise. No clonus or Babinski. Patellar reflexes are plus 1 out of 4 bilaterally Extremity normal to inspection Neuro oriented x3 and CN's II-XII intact bilaterally Sensorium / Orientation: alert Psych mental status grossly normal Skin no rashes or lesions noted Skin Narrative: No overlying soft tissue changes to suggest trauma or infection MDM MDM MDM Narrative Medical decision making narrative: Patient presented to the ER with stable vitals and no history or physical exam findings concerning for cauda equina or epidural abscess. She reported symptoms have been present for months but worse worsened in the last 5-7. As she did have midline pain I elected to perform a noncontrast CT for an improved picture of the low back and pelvis. The CT showed no acute bony abnormality. Therefore this time she does not have infection changes based on physical exam she is low risk for cauda equina and epidural abscess based on her history as well and CT shows no acute finding. Based on the fact pain worsens with ambulation and hip flexion I feel this is probably sacroiliac joint or piriformis syndrome and patient will be given symptomatic medications and is otherwise safe for discharge. Radiography Diagnostic Testing: Clinical Impression(s) from Imaging Studies Lumbar Spine CT 01/14/22 01:08 IMPRESSION: Normal unenhanced CT examination of the lumbar spine. Electronically Signed: Maninder Oliveira MD at 2:14 EDT Reading Location ID and State: [facility] / [place] Tel , Service support , Discharge Plan Triage Chief Complaint: Other, Pain/Inj ED Provider: Jose Bruce Dx/Rx/DC Orders Clinical Impression: Back pain, Bilateral piriformis syndrome Instructions: Understanding Sacroiliac Strain, ED Back Pain (Acute or Chronic) Prescriptions: New hydrocodone-acetaminophen 5-325 mg tablet 1 tab PO Q6H PRN (Reason: pain) 3 Days Qty: 12 RF: 0 methocarbamol 500 mg tablet 1,000 mg PO 4X/DAY PRN PRN (Reason: Muscle pain/spasm) 7 Days Qty: 56 RF: 0 Primary Care Provider: Priscilla Payne Referrals: Priscilla Payne MD [Primary Care Provider] - Activity Restrictions/Additional Instructions: Please take the medication as directed to help improve your symptoms. However if your pain persist despite taking medication and doing stretches please return to the ER or discuss further testing such as an MRI with your family doctor. Disposition Disposition: Home, Self Care Discharge Date/Time: 01/14/22 02:59
[2022-01-14 02:58] VITALS: RESP 20
== END 2022-01-14 02:59 | disposition home or self-care (01) ==
PROVIDERS: Emergency Provider Emergency Medicine; PCP Internal Medicine; Visit Provider Emergency Medicine
DX: M54.9 Dorsalgia, unspecified (principal); F17.210 Nicotine dependence, cigarettes, uncomplicated; R26.2 Difficulty in walking, not elsewhere classified
CPT/HCPCS: 72131; 96372; 99283

== ENCOUNTER 2022-02-16 22:27 | Emergency (ER) | payer MEDICAID, SELFPAY ==
[2022-02-16 22:28] VITALS: BP 111/91; PULSE 104; RESP 18; TEMP 36.7; O2SAT 99; BMI 30.4
--- NOTE | 2022-02-16 22:43 | EDS_ITS ---
HPI History of Present Illness Chief Complaint: Lower Extremity Injury Informant: patient Occured/Mechanism Mechanism/Context: Yes fall Onset/Context/Timing Onset: Weeks (2) Context: Sudden Onset Timing: Continuous Quality of Pain: Aching Location: left foot Current Severity: Severe Maximum Severity: Severe Worsened by: moving, weight-bearing Relieved by: remaining still Associated Symptoms Associated Symptoms: Negative for Parasthesia, Weakness and Loss of Funtion Narrative Narrative: Patient states she tripped over another person's foot 2 weeks ago and injured her left foot. Has not really been hurting all that bad but has been sore until the last couple days, now the pain is severe, she is having trouble bearing weight on it at all. She points to the dorsal lateral midfoot and forefoot mostly, up to the MTPJ's. Denies any other injury. [facility] Medical History (Updated 02/16/22 @ 23:[address] Charles Barker MD) Arm fracture Marijuana use Ureterolithiasis Home Medications hydrocodone-acetaminophen 1 tab PO Q6H PRN 3 Days #12 tab 01/14/22 [Rx Last Taken Unknown] methocarbamol 1,000 mg PO 4X/DAY PRN PRN 7 Days #56 tab 01/14/22 [Rx Last Taken Unknown] Allergy/AdvReac Type Severity Reaction Status Date / Time naproxen AdvReac Nausea Verified 02/16/22 22:30 Social History Smoking Status: Current every day smoker tobacco type: cigarettes ROS ROS ED Constitutional Constitutional ED: Denies chills or fever(s) Musculoskeletal Musculoskeletal: Reports extremity pain; Denies neck pain Integumentary Denies Abrasions, rash or wounds Neurologic Neurologic: Denies paresthesias or weakness EXAM Physical Exam Const Vital Signs: 02/16/22 22:28 Temperature 98.1 F Temperature Source Temporal Pulse Rate 104 H Respiratory Rate 18 Blood Pressure 111/91 H Blood Pressure Mean 97 Pulse Ox 99 Oxygen Delivery Method Room Air Positive well nourished and well developed General Appearance ED: well developed and NAD Neck full ROM and supple Back/Spine normal ROM and normal to inspection Extremity normal to inspection Extremity Narrative: Very limited range of motion ankle and toes due to pain in the area of complaint in the dorsal left forefoot, mostly laterally. Exam is limited because everywhere I palpate she states that she can feel the pressure. She seems to be the most tender in metatarsals 3-5 dorsally. Neuro oriented x3, no focal motor deficits and no sensory deficits noted Sensorium / Orientation: alert Psych mental status grossly normal and thought process normal Skin no wounds Rashes: no rashes MDM MDM MDM Narrative Medical decision making narrative: My interpretation 3 view x-ray series of the left foot shows no acute bony abnormality. Radiology in agreement, seeing an old healed fracture at the proximal fifth metatarsal. Patient was given a postop shoe, crutches, referred to podiatry, given something for pain here. She had recent narcotic prescription in about 1 month ago being seen here for back pain, she is not complaining about back pain today, since we are taking the weight off of her foot and it really hurts with moving and weightbearing I do not think she needs narcotics to go home with. Radiography Diagnostic Testing: Clinical Impression(s) from Imaging Studies Foot X-Ray 02/16/22 22:45 IMPRESSION: No acute fracture identified. Old sclerosis and old healed fracture of proximal fifth metatarsal, it appeared to be acute to early subacute in 2016. Electronically Signed: Thuy Berger MD at 23:19 EDT , Discharge Plan Triage Chief Complaint: Lower Extremity Injury ED Provider: Charles Barker Dx/Rx/DC Orders Clinical Impression: Contusion of left foot Instructions: ED Foot Contusion Prescriptions: No Action hydrocodone-acetaminophen 5-325 mg tablet 1 tab PO Q6H PRN (Reason: pain) 3 Days Qty: 12 RF: 0 methocarbamol 500 mg tablet 1,000 mg PO 4X/DAY PRN PRN (Reason: Muscle pain/spasm) 7 Days Qty: 56 RF: 0 Primary Care Provider: Priscilla Payne Referrals: Priscilla Payne MD [Primary Care Provider] - Arden Brown DPM [STAFF PHYSICIAN] - 1 Week if not improving Disposition Disposition: Home, Self Care
--- NOTE | 2022-02-16 22:45 | RAD_ITS ---
EXAM: XR LEFT FOOT COMPLETE, 3 OR MORE VIEWS CLINICAL INDICATION: injury TECHNIQUE: Frontal, lateral and oblique views of the left foot. This report was created using [employer] report generation technology. COMPARISON: April 21, 2016. FINDINGS: BONES/JOINTS: There appears to be transverse sclerosis and slight irregular contour of the proximal third of the fifth metatarsal best seen on the frontal view, possibly old healed fracture. No acute fractures are identified. Narrowing of the first MTP joint, moderate. SOFT TISSUES: Unremarkable. No soft tissue swelling or gas. No radiopaque foreign body. RAD/Foot min 3 Views IMPRESSION: No acute fracture identified. Old sclerosis and old healed fracture of proximal fifth metatarsal, it appeared to be acute to early subacute in 2016. Electronically Signed: Thuy Berger MD at 23:19 EDT ,
[2022-02-16] MEDS: traMADol 50 MG Tablet PO (23:15)
== END 2022-02-16 23:32 | disposition home or self-care (01) ==
PROVIDERS: Emergency Provider Emergency Medicine; PCP Internal Medicine; Visit Provider Emergency Medicine
DX: S90.32XA Contusion of left foot, initial encounter (principal); M54.9 Dorsalgia, unspecified; W19.XXXA Unspecified fall, initial encounter; F17.210 Nicotine dependence, cigarettes, uncomplicated
CPT/HCPCS: 73630; 99285

== ENCOUNTER 2022-06-04 18:18 | Emergency (ER) | payer MEDICAID, SELFPAY ==
[2022-06-04 18:18] VITALS: BP 132/81; PULSE 99; RESP 16; TEMP 36.7; O2SAT 98; BMI 32.6
--- NOTE | 2022-06-04 19:50 | EDS_ITS ---
HPI History of Present Illness Chief Complaint: Bite Narrative Narrative: 41-year-old female presenting with irritation to the lower back. She states he was outdoors cleaning up outside and felt a sharp area on her back. She thought she had a spider bite. She states that the area on her lower back has been hurting for the last couple of days. She now noticed redness and which has been circled. She is not noticed any drainage. No direct trauma to the back. No systemic signs or symptoms. No history of MRSA or abscess. [facility] Medical History Arm fracture Marijuana use Ureterolithiasis Home Medications hydrocodone-acetaminophen 5-325mg 5mg-325mg 1 tab PO Q6H PRN pain 3 days #12 tabs 01/14/22 [Rx Last Taken Unknown] methocarbamol 500 mg tablet 1,000 mg PO 4X/DAY PRN PRN Muscle pain/spasm 7 days #56 tabs 01/14/22 [Rx Last Taken Unknown] clindamycin HCl 150 mg capsule 450 mg PO Q8H 7 days #63 caps 06/04/22 [Rx Last Taken Unknown] oxycodone-acetaminophen 5 mg-325 mg tablet (Endocet) 1 tab PO Q6H 3 days #12 tabs 06/04/22 [Rx Last Taken Unknown] Allergy/AdvReac Type Severity Reaction Status Date / Time naproxen AdvReac Nausea Verified 06/04/22 18:20 Social History Smoking Status: Current every day smoker tobacco type: cigarettes ROS ROS ED Constitutional Constitutional ED: Denies chills or fever(s) Eyes Eyes: Denies change in vision ENT ENT ED: Denies rhinorrhea or sore throat Cardiovascular Cardiovascular: Denies chest pain or palpitations Respiratory/Chest Respiratory/Chest: Denies cough or dyspnea Gastrointestinal Gastrointestinal: Denies abdominal pain or constipation Genitourinary Genitourinary ED: Denies dysuria or hematuria Musculoskeletal Musculoskeletal: Denies arthralgias Integumentary Reports rash Neurologic Neurologic: Denies headache(s) or paresthesias Psychiatric Psychiatric: Denies anxiety or depression EXAM Physical Exam Const Vital Signs: 06/04/22 18:18 Temperature 98.1 F Temperature Source Temporal Pulse Rate 99 Respiratory Rate 16 Blood Pressure 132/81 H Blood Pressure Mean 98 Pulse Ox 98 Oxygen Delivery Method Room Air Positive well nourished General Appearance ED: NAD HEENT atraumatic Eyes PERRL and EOMs intact bilaterally Resp normal respiratory effort Cardio regular rhythm Rate: regular rate Back/Spine normal to inspection Extremity normal to inspection Neuro oriented x3 Sensorium / Orientation: alert Motor Exam: strength 5/5 throughout Psych Mood & Affect: tearful Skin Skin Narrative: There is a 5 x 7 area of induration on the lower aspect of the back. This does not appear to be fluctuant but is swollen. It is tender to palpation. No drainage. MDM MDM MDM Narrative Medical decision making narrative: Patient with area of cellulitis on the lower back. No history of MRSA or abscess. She is unsure if she had a spider bite or something else causing irritation to her lower back but she was working outside when it happened. She does not have any systemic signs or symptoms. I used a bedside ultrasound over the area and did not find any areas of fluctuance here. Given this I will start her on antibiotics. She is given clindamycin and Percocet here in the ED as she states it is painful. She will be given a prescription for both for home. Return precautions discussed. She is supposed to do sits baths as many times a day as possible if there is any worsening of the symptoms the patient should return to the ER. Impression: 1. Lower back cellulitis Lab Data Attestation: I reviewed the patient's lab results. Discharge Plan Triage Chief Complaint: Bite ED Provider: Slade Stringer Dx/Rx/DC Orders Instructions: ED Cellulitis Prescriptions: New oxycodone-acetaminophen [Endocet] 5-325 mg tablet 1 tab PO Q6H 3 Days Qty: 12 0RF clindamycin HCl 150 mg capsule 450 mg PO Q8H 7 Days Qty: 63 0RF No Action hydrocodone-acetaminophen 5-325 mg tablet 1 tab PO Q6H PRN (Reason: pain) 3 Days Qty: 12 0RF methocarbamol 500 mg tablet 1,000 mg PO 4X/DAY PRN PRN (Reason: Muscle pain/spasm) 7 Days Qty: 56 0RF Primary Care Provider: Priscilla Payne Referrals: Priscilla Payne MD [Primary Care Provider] - Disposition Disposition: Home, Self Care
[2022-06-04] MEDS: Clindamycin HCl 150 MG Capsule 450 MG PO (19:54)
[2022-06-04] MEDS: oxyCODONE 5 MG Tablet PO (19:55)
== END 2022-06-04 20:04 | disposition home or self-care (01) ==
LOC: ED 19:51
PROVIDERS: Emergency Provider Student in an Organized Health Care Education/Training Program; PCP Internal Medicine; Visit Provider Student in an Organized Health Care Education/Training Program
DX: L03.312 Cellulitis of back [any part except buttock and flank] (principal); F17.210 Nicotine dependence, cigarettes, uncomplicated
CPT/HCPCS: 99283

== ENCOUNTER 2023-03-04 17:53 | Emergency (ER) | payer MEDICAID, SELFPAY ==
[2023-03-04 17:55] VITALS: BP 156/118; PULSE 98; RESP 18; TEMP 36.4; O2SAT 97; BMI 35.6
[2023-03-04] MEDS: Naloxone 2 MG/2 ML Syringe NASAL (18:10)
--- NOTE | 2023-03-04 18:26 | EX.ED.SAOD ---
HPI History of Present Illness Chief Complaint: Overdose Narrative Narrative: 42-year-old female presents status post overdose/suspected overdose and mental status change. Her history and physical is limited secondary to her condition. According to police and EMS, she was found outside on a driveway, soaking wet from the rain. She was unresponsive and administered intranasal Narcan 2 mg. She then became intermittently combative. Reportedly, a white powdery substance was found in her bra. There was suspected smell of alcohol at the scene. She was brought in for the overdose and mental status change. [facility] Medical History Arm fracture Marijuana use Ureterolithiasis Home Medications hydrocodone-acetaminophen 5-325mg 5mg-325mg 1 tab PO Q6H PRN pain 3 days #12 tabs 01/14/22 [Rx Last Taken Unknown] methocarbamol 500 mg tablet 1,000 mg PO 4X/DAY PRN PRN Muscle pain/spasm 7 days #56 tabs 01/14/22 [Rx Last Taken Unknown] clindamycin HCl 150 mg capsule 450 mg PO Q8H 7 days #63 caps 06/04/22 [Rx Last Taken Unknown] oxycodone-acetaminophen 5 mg-325 mg tablet (Endocet) 1 tab PO Q6H 3 days #12 tabs 06/04/22 [Rx Last Taken Unknown] Allergy/AdvReac Type Severity Reaction Status Date / Time naproxen AdvReac Nausea Verified 03/04/23 17:58 Social History Smoking Status: Current every day smoker tobacco type: cigarettes ROS ROS ED ROS Narrative Unable to obtain review of systems from patient secondary to change in mental status/intermittently unresponsive from suspected overdose Review of Systems ROS Unobtainable: other EXAM Physical Exam Narrative Exam Narrative: Afebrile. Vital signs noted. Intermittently combative. Punching, kicking, and screaming intermittently. HEENT: Normocephalic. Atraumatic. PERRL, EOMI. Neck soft and supple. No point tenderness or step off. Cardiovascular: Regular rate and rhythm. No murmurs, rubs, or gallops appreciated. Respiratory: No tachypnea. Lungs clear to auscultation bilaterally. Gastrointestinal: Abdomen soft, nontender, with normoactive bowel sounds. No rebound or guarding. Neurological: Awake. Alert. Nonfocal, nonlateralizing. Skin: No rash. Normal color. No pallor. Musculoskeletal: No pedal edema. Full range of motion extremities. Const Vital Signs: 03/04/23 17:55 03/04/23 21:00 Temperature 97.5 F L Temperature Source Temporal Pulse Rate 98 81 Respiratory Rate 18 16 Blood Pressure 156/118 H Blood Pressure Mean 130 Pulse Ox 97 100 Oxygen Delivery Method Room Air Room Air MDM MDM MDM Narrative Medical decision making narrative: Given the patient's intermittent responsiveness, she will be administered another 2 mg of intranasal Narcan. I will obtain an alcohol level and she will be placed on a solidworks mechanical designer. I reviewed her laboratory work, her ethyl alcohol level is elevated at 254. In comparison with other laboratories, it has been elevated in the past. She was allowed to sleep in the emergency department and she will be observed until she metabolizes her alcohol. She will be reassessed by the overnight physician, Dr. Charles Barker. He will make final disposition on this patient which I anticipate will be discharged. Of note, the patient was seen standing and becoming mildly belligerent during her emergency department stay. She did not require medication to calm her, and she went to sleep shortly thereafter. Repeat examination at approximately 2200 shows her resting comfortably. Disposition is pending reevaluation, but anticipated discharge. History & Record Review Discussion w/independent historian: EMS personnel and Other (Law Enforcement) Additional record(s) reviewed:: Prior ED visit and Prior labs Lab Data Attestation: I reviewed the patient's lab results. Labs: Laboratory Results - last 24 hr 03/04/23 18:55 Ethyl Alcohol 254.0 Discharge Plan Triage Chief Complaint: Overdose ED Provider: Joe Kaur Dx/Rx/DC Orders Clinical Impression: Alcohol intoxication, Unresponsive episode Instructions: ED Overdose Alcohol, ED Alcohol Intoxication Prescriptions: No Action hydrocodone-acetaminophen 5-325 mg tablet 1 tab PO Q6H PRN (Reason: pain) 3 Days Qty: 12 0RF methocarbamol 500 mg tablet 1,000 mg PO 4X/DAY PRN PRN (Reason: Muscle pain/spasm) 7 Days Qty: 56 0RF oxycodone-acetaminophen [Endocet] 5-325 mg tablet 1 tab PO Q6H 3 Days Qty: 12 0RF clindamycin HCl 150 mg capsule 450 mg PO Q8H 7 Days Qty: 63 0RF Primary Care Provider: Priscilla Payne Referrals: Priscilla Payne MD [Primary Care Provider] -
[2023-03-04 21:00] VITALS: PULSE 81; RESP 16; O2SAT 100
[2023-03-04 22:45] VITALS: PULSE 71; RESP 16; O2SAT 100
[2023-03-05 01:03] VITALS: BP 151/97; PULSE 105; RESP 18; O2SAT 98
[2023-03-05] MEDS: Ondansetron 4 MG/2 ML Vial IV (01:12)
== END 2023-03-05 07:53 | disposition home or self-care (01) ==
PROVIDERS: Emergency Provider Emergency Medicine; PCP Internal Medicine; Visit Provider Emergency Medicine
DX: F10.129 Alcohol abuse with intoxication, unspecified (principal); F17.210 Nicotine dependence, cigarettes, uncomplicated; R40.4 Transient alteration of awareness; Y90.8 Blood alcohol level of 240 mg/100 ml or more
CPT/HCPCS: 82077; 96374; 99283; J2405